=== PATIENT | male | born 1960 | race Hispanic/Latino ===

== ENCOUNTER 2023-10-09 14:58 | Emergency (ER) | payer MEDICARE ==
[~2023-10-09] VITALS: Ht 170.2 cm; Wt 79.8 kg
[2023-10-09 15:03] VITALS: BP 131/58; PULSE 86; RESP 17
== END 2023-10-09 18:22 | disposition home or self-care (01) ==
LOC: EDH 14:58
DX: R09.A2 Foreign body sensation, throat (principal); E11.9 Type 2 diabetes mellitus without complications
CPT/HCPCS: 70360